=== PATIENT | female | born 1960 | race Caucasian/White ===

== ENCOUNTER → 2023-09-28 10:29 | Outpatient (REF) | payer OTHER, SELFPAY | LOC: RAD 10:29 | PROVIDERS: ATTENDING PHYSICIAN Nurse Practitioner Primary Care; REFERRING PHYSICIAN Specialist | DX: Z85.3 Personal history of malignant neoplasm of breast (principal); R10.30 Lower abdominal pain, unspecified; M16.12 Unilateral primary osteoarthritis, left hip | CPT/HCPCS: 73502; 76830; 76856 ==

== ENCOUNTER 2023-09-30 10:10 | Emergency (ER) | payer OTHER, SELFPAY ==
[2023-09-30 10:30] VITALS: BP 125/92
--- NOTE | 2023-09-30 11:44 | ED.GENMED ---
History of Present Illness
General
Chief Complaint: Abdominal Pain
Source: patient
Exam Limitations: none
Time Seen by Provider: 09/30/23 11:23
Travel History
Have you had any contact with someone who has COVID-19?: No
Do you have any symptoms of coronavirus? Fever > 100 degrees, chills, cough, shortness of breath, sore throat, loss of taste or smell, muscle aches, or headache?: No
History of Present Illness
History of Present Illness:
63-year-old female presents with intermittent moderate to severe cramps in her abdomen over the past week. Occasionally is made worse with eating however sometimes does not. She denies any vomiting. No chest pain or shortness of breath. She has
been moving her bowels. No diarrhea or bloody stool. No other complaints at this time no urinary symptoms. No recent travel or surgery
Past History
Past History
ED Past Medical History: Cancer (Breast cancer), GERD, Other (Back pain, hiatal hernia) and Other (Anemia)
ED Past Surgical History: Other (Wide excision breast, breast augmentation)
Social History
Tobacco: Non-smoker
Alcohol: None
Drug: None
Living: with family
Phy Exam
Physical Exam
Physical Exam:
General: Well-appearing female no acute respiratory distress
HEENT: Normocephalic atraumatic
Heart: Regular rate and rhythm no murmurs
Lungs: Clear to auscultation bilaterally no wheezing
Abdomen soft mildly diffusely tender and slightly tender to the epigastric region. Negative Wharton sign no guarding rebound normal bowel sounds no pulsatile masses no costovertebral angle tender
Extremities: No cyanosis or edema
Course
Orders/Labs/Results
Orders:
Orders
09/30/23 11:39
CT Abd/pelvis W Iv Cont Urgent
Comment:
Reason For Exam: abdominal pain
09/30/23 13:02
Complete Blood Count/With Diff Urgent
Comprehensive Metabolic Panel Urgent
Lactic Acid Q4H
Comment: CANCEL 2nd LACTIC ACID IF 1st LACTIC ACID IS LESS THAN 2
Lipase Urgent
Abnormal Lab Results
09/30/23
13:02
Absolute Neuts (auto) 7.0 H 10^3/uL
(1.4-6.5)
Absolute Monos (auto) 0.7 H 10^3/uL
(0.1-0.6)
Chloride 108 H mmol/L
(98-107)
09/30/23 13:02
09/30/23 13:02
Vital Signs
Initial and Last Documented VS:
Initial Vital Signs
Temp Pulse Resp BP Pulse Ox
99.2 F 83 16 125/92 100
09/30/23 10:30 09/30/23 10:30 09/30/23 10:30 09/30/23 10:30 09/30/23 10:30
Last Documented Vital Signs
Temp Pulse Resp BP Pulse Ox
98.3 F 76 18 142/85 100
09/30/23 14:04 09/30/23 14:04 09/30/23 14:04 09/30/23 14:04 09/30/23 14:04
MDM/Problems Addressed
Differential Diagnosis Includes:
Abdominal pain. Differential could include gastroenteritis versus gastritis versus biliary colic versus diverticulitis
Will check labs including lipase. CT with IV contrast pending
*Critical Care Note
Total Time (30-74mins, 75-104mins- exclusive of procedures): Not Applicable
Update Note
Update Note:
CT shows acute sigmoid diverticulitis without evidence of rupture or abscess. Patient be started on Levaquin and Flagyl advise clear liquids and stable for discharge
ED Attending Note
-
Portions of this chart may have been created with voice recognition software.� Occasional wrong word or��sound alike� substitutions may have occurred due to the inherent limitations of voice recognition software.
Discharge Plan
Departure
Patient Disposition: Home (Routine Discharge)
Date of Disposition: 09/30/23
Time of Disposition: 14:47
Patient with high blood pressure during this ER visit?: No
Discharge Problem:
Diverticulitis
Instructions: Diverticulitis (DC)
Prescriptions:
New
metronidazole 500 mg tablet
500 mg PO TID Qty: 30 0RF
levofloxacin 500 mg tablet
500 mg PO DAILY 10 Days Qty: 10 0RF
Referrals:
Jaydon Raygoza DO [Family Provider] -
Activity Restrictions/Additional Instructions:
Drink plenty clear liquids. Use antibiotics as directed. Return here for increasing pain or fever. Follow-up with your family doctor otherwise
Interventions
Interventions:
*ED COVID-19 Vaccine History Last Done: 09/30/23 10:30
[2023-09-30 12:01] VITALS: BMI 29.4
[2023-09-30 13:11] LABS: % Basophils 0.9 % (0-2); % Eosinophils 2.3 % (0-6); % Immature Granulocytes 0.4 % (0-0.5); % Lymphocytes 25.4 % (20.5-51.1); % Monocytes 6.3 % (1.7-9.3); % Neutrophils 64.7 % (42.2-75.2); Absolute Basophils 0.1 10^3/uL (0-0.2); Absolute Eosinophils 0.3 10^3/uL (0-0.7); Absolute Lymphocytes 2.7 10^3/uL (1.2-3.4); Absolute Monocytes 0.7 10^3/uL (0.1-0.6); Hemoglobin 14.5 g/dL (12.0-16.0); Mean Corp Hgb Conc. 34.5 g/dL (33.0-37.0); Mean Corpuscular Hgb 29.4 pg (27.0-31.0); Mean Platelet Volume 10.3 fL (7.4-10.4); Nucleated Red Blood Cells % 0 %; Platelet Count 280 10^3/uL (130-400); Red Blood Cell Count 4.94 10^6/uL (4.20-5.40); Red Cell Dist. Width 12.9 % (11.5-14.5); White Blood Cell Count 10.8 10^3/uL (4.8-10.8)
[2023-09-30 13:42] LABS: ALT (SGPT) 24 U/L (0-35); AST (SGOT) 28 U/L (14-36); Albumin 4.4 g/dl (3.5-5.0); Alkaline Phosphatase 82 U/L (38-126); Blood Urea Nitrogen 17 mg/dl (7-17); Calcium 9.7 mg/dl (8.4-10.2); Carbon Dioxide 23 mmol/L (22-30); Chloride 108 mmol/L (98-107); Estimated Creatinine Clearance 76 ml/min; Glucose 90 mg/dl (70-99); Lipase 56 U/L (23-300); Potassium 4.2 mmol/L (3.5-5.1); Sodium 137 mmol/L (135-145); Total Bilirubin 1.3 mg/dl (0.2-1.3); Total Protein 7.2 g/dl (6.3-8.2); eGFR > 60.00
[2023-09-30 14:04] VITALS: BP 142/85
== END 2023-09-30 15:25 | disposition home or self-care (01) ==
LOC: EMR 10:10
PROVIDERS: Physician Assistant; EMERGENCY PHYSICIAN Emergency Medicine; FAMILY PHYSICIAN Internal Medicine
DX: K57.32 Diverticulitis of large intestine without perforation or abscess without bleeding (principal)
CPT/HCPCS: 99285; 74177; 80053; 83605; 83690; 85025; Q9967

== ENCOUNTER → 2023-10-06 14:44 | Outpatient (REF) | payer OTHER, SELFPAY | LOC: RAD 14:44 | PROVIDERS: ATTENDING PHYSICIAN Family Medicine | DX: N18.2 Chronic kidney disease, stage 2 (mild) (principal); E87.8 Other disorders of electrolyte and fluid balance, not elsewhere classified | CPT/HCPCS: 76770 ==

== ENCOUNTER → 2023-10-12 08:17 | Outpatient (REF) | payer OTHER, SELFPAY | LOC: RCS 08:17 | PROVIDERS: ATTENDING PHYSICIAN Nurse Practitioner Primary Care; FAMILY PHYSICIAN Internal Medicine | DX: R06.09 Other forms of dyspnea (principal); I34.0 Nonrheumatic mitral (valve) insufficiency; I10 Essential (primary) hypertension | CPT/HCPCS: 93306 ==

== ENCOUNTER 2023-11-12 13:00 | Emergency (ER) | payer OTHER, SELFPAY ==
[2023-11-12 13:05] VITALS: BP 147/79
[2023-11-12 14:19] VITALS: BP 141/72
[2023-11-12 14:37] LABS: % Basophils 0.7 % (0-2); % Eosinophils 2.3 % (0-6); % Immature Granulocytes 0.2 % (0-0.5); % Lymphocytes 44.4 % (20.5-51.1); % Monocytes 5.5 % (1.7-9.3); % Neutrophils 46.9 % (42.2-75.2); Absolute Eosinophils 0.1 10^3/uL (0-0.7); Absolute Lymphocytes 2.7 10^3/uL (1.2-3.4); Absolute Monocytes 0.3 10^3/uL (0.1-0.6); Absolute Neutrophils 2.9 10^3/uL (1.4-6.5); Hematocrit 41.3 % (37.0-47.0); Hemoglobin 13.7 g/dL (12.0-16.0); Mean Corp Hgb Conc. 33.2 g/dL (33.0-37.0); Mean Corpuscular Hgb 29.2 pg (27.0-31.0); Mean Corpuscular Volume 88.1 fL (81.0-99.0); Mean Platelet Volume 11.1 fL (7.4-10.4); Nucleated Red Blood Cells % 0 %; Platelet Count 235 10^3/uL (130-400); Red Blood Cell Count 4.69 10^6/uL (4.20-5.40); Red Cell Dist. Width 12.4 % (11.5-14.5); White Blood Cell Count 6.1 10^3/uL (4.8-10.8)
[2023-11-12 14:45] LABS: Urine Albumin Negative (Neg - Trace); Urine Bilirubin Negative (Negative); Urine Character Clear (Clear); Urine Color Yellow; Urine Glucose Negative (Negative); Urine Ketone 1+ (Negative); Urine Leukocyte Negative (Negative); Urine Nitrite Negative (Negative); Urine Occult Blood Negative (Negative); Urine Urobilinogen Negative (Neg - 1+)
[2023-11-12 14:56] LABS: ALT (SGPT) 19 U/L (0-35); AST (SGOT) 26 U/L (14-36); Albumin 4.5 g/dl (3.5-5.0); Alkaline Phosphatase 56 U/L (38-126); Blood Urea Nitrogen 12 mg/dl (7-17); Calcium 9.7 mg/dl (8.4-10.2); Carbon Dioxide 24 mmol/L (22-30); Chloride 106 mmol/L (98-107); Glucose 87 mg/dl (70-99); Lipase 127 U/L (23-300); Sodium 138 mmol/L (135-145); Total Protein 7.1 g/dl (6.3-8.2); eGFR > 60.00
[2023-11-12 15:17] VITALS: BP 144/73
--- NOTE | 2023-11-12 15:19 | ED.GENMED ---
History of Present Illness
General
Chief Complaint: Abdominal Pain
Source: patient
Exam Limitations: none
Time Seen by Provider: 11/12/23 14:11
Nursing documentation reviewed up to this point in time: agreed with
Travel History
Have you had any contact with someone who has COVID-19?: No
Do you have any symptoms of coronavirus? Fever > 100 degrees, chills, cough, shortness of breath, sore throat, loss of taste or smell, muscle aches, or headache?: No
History of Present Illness
History of Present Illness:
Patient is a 63-year-old female with a history of GERD and hiatal hernia, remote breast cancer in 2005
Presents for continued abdominal discomfort and bloating. Patient says on she came here for abdominal pain was diagnosed with diverticulitis in her sigmoid colon. She was put on Levaquin and Flagyl which she stopped after 4 days because she
was feeling a lot of epigastric pain and thought it inflamed her reflux. She ultimately got put on Protonix 40 mg twice daily and Pepcid 20 mg twice daily. Her family doctor switched her over to Augmentin which she took for 5 days and then had a
brief time of about a week where she did not have any symptoms. At that time she was still eating a pretty bland diet. She says that she made some decisions to add greens into her diet and then was having more discomfort again with a lot of
bloating and crampiness. She has been taking dicyclomine here and there which will help eventually. 5 days ago she started having diarrhea and had diarrhea for about 24 hours. This was after her grandchildren visited and her son ended up telling
her that the grandchildren were also sick with a GI bug. Patient says the diarrhea stopped after 1 day but she is since has had increasing abdominal discomfort. She has seen GI recently who recommended that she have a CT scan which she is
scheduled as an outpatient for 2 weeks from now. Patient says with the symptoms she feels like she cannot wait. She has not had any fever or chills, bloody diarrhea, vomiting, urinary symptoms, chest pain or shortness of breath.
Past History
Past History
ED Past Medical History: Cancer (Breast cancer), GERD, Other (Back pain, hiatal hernia) and Other (Anemia)
ED Past Surgical History: Other (Wide excision breast, breast augmentation)
Social History
Tobacco: Non-smoker
Alcohol: None
Drug: None
Living: with family
Review of Systems
Review of Systems
Allergies reviewed?: Yes
All Other Systems: Not applicable
Phy Exam
Physical Exam
Physical Exam:
GENERAL: Alert , in no apparent distress
HEAD: NCAT
NECK: Supple,full rom, nontender
ENT: o/p clr, mmm.
CARDIAC: Regular rate and rhythm . no edema
LUNGS: Clear breath sounds bilaterally, no acute respiratory distress, no wheezes/rales/rhonchi
ABDOMEN: Soft, without focal tenderness, no r/g, no cvat, no significant distnetion
NEUROLOGICAL: Alert and orientedx 4,
SKIN: Warm and dry, skin intact.
MUSCULOSKELETAL: No edema, well perfused.
PSYCH: Normal and appropriate interaction.
Course
Orders/Labs/Results
Orders:
Orders
11/12/23 14:21
CMP [Comprehensive Metabolic Panel] Urgent
Complete Blood Count/With Diff Urgent
Lipase Urgent
11/12/23 14:39
Urine Culture Reflexed from UA [Urinalysis Reflex To Culture] Urgent
Date Specimen was Collected: 11/12/23
Time Specimen was Collected: 14:31
11/12/23 15:11
CT Abd/Pel (IV only)-DH only Urgent
Comment:
Reason For Exam: continued abd pain, h/o diverticultis
Abnormal Lab Results
11/12/23 11/12/23
14:21 14:39
MPV 11.1 H fL
(7.4-10.4)
Urine Ketones 1+ A
(Negative)
11/12/23 14:21
11/12/23 14:21
Vital Signs
Initial and Last Documented VS:
Initial Vital Signs
Temp Pulse Resp BP Pulse Ox
98.8 F 56 17 147/79 99
11/12/23 13:05 11/12/23 13:05 11/12/23 13:05 11/12/23 13:05 11/12/23 13:05
Last Documented Vital Signs
Temp Pulse Resp BP Pulse Ox
98.8 F 64 18 131/71 99
11/12/23 13:05 11/12/23 17:18 11/12/23 17:18 11/12/23 17:18 11/12/23 17:18
MDM/Problems Addressed
Differential Diagnosis Includes:
diverticultis, gerd, gastritis, hiatal hernia, small intensine bacterial overgrowth
MDM/Problems Addressed:
63 y/o F with ongoing bloating and some discomfort, mostlly epigastric since having abx for her diverticulitis dx 09/30 here
pt seen by GI an amanda scheudle to have endoscopy /colonosocpy but GI wanted her to have ct first to ensure resolution of her inflammnation from divertic
pt ahd some week or two feeling better but the sypmtosm wax and wane and she is tired of feeling like she cannot eat anything buy bland food
she is well apeparing nontoxic
no vomiting or diarrhea
no constipation
no cp, sob
her labs show mild ketones in urine otherwise neg
ct reviewed with patient
some atelectasis in the lung, nonspecifici
inflammmation overall improved in colon
no new divertic
pt would like to try eating more foods than white bread
she acutally doesn't have inc pain with eating
but she gets bloated
perhaps SIBO
pt d/c home
fu gi.
*Critical Care Note
Total Time (30-74mins, 75-104mins- exclusive of procedures): Not Applicable
ED Attending Note
-
Portions of this chart may have been created with voice recognition software.� Occasional wrong word or��sound alike� substitutions may have occurred due to the inherent limitations of voice recognition software.
Discharge Plan
Departure
Patient Disposition: Home (Routine Discharge)
Date of Disposition: 11/12/23
Time of Disposition: 17:16
Patient with high blood pressure during this ER visit?: Yes
Condition: Fair
Covid-19: Not Applicable
Discharge Problem:
Abdominal pain, Abdominal bloating
Instructions: Abdominal Pain
Prescriptions:
No Action
metronidazole 500 mg tablet
500 mg PO TID Qty: 30 0RF
levofloxacin 500 mg tablet
500 mg PO DAILY 10 Days Qty: 10 0RF
Referrals:
Jaydon Raygoza DO [Family Provider] - Follow up in 2-3 days
Activity Restrictions/Additional Instructions:
Your CAT scan showed some incidental findings but it looks overall that your diverticulitis is much better. You can try advancing your diet as tolerated. Consider asking youR GI doctor for whether you may benefit from an antibiotic specific for
small intestinal bacterial overgrowth. You can also try watching how much gluten you eat because this is an inflammatory as well.
Try a fiber supplement.
Drink more fluids.
Continue your GI medications and have your colonoscopy and endoscopy as planned. Return for any black stool, severe sudden worsening of pain, fever or chills, bloody stool, severe diarrhea or any concerns
Interventions
Interventions:
*Risk Screen - Suicide Last Done: 11/12/23 14:18
*General Assessment Last Done: 11/12/23 14:18
*Neglect/Abuse Screening Last Done: 11/12/23 14:18
ED- Fall Risk Assessment Last Done: 11/12/23 14:18
*ED COVID-19 Vaccine History Last Done: 11/12/23 14:18
*Nursing Disposition Last Done: 11/12/23 17:23
ZS-Wniapz-Qybhnpzfbx Assessment Last Done: 11/12/23 14:18
[2023-11-12 17:18] VITALS: BP 131/71
== END 2023-11-12 18:18 | disposition home or self-care (01) ==
LOC: EMR 13:00
PROVIDERS: EMERGENCY PHYSICIAN Emergency Medicine; FAMILY PHYSICIAN Internal Medicine
DX: R10.9 Unspecified abdominal pain (principal); R14.0 Abdominal distension (gaseous); R82.4 Acetonuria; K57.92 Diverticulitis of intestine, part unspecified, without perforation or abscess without bleeding; R03.0 Elevated blood-pressure reading, without diagnosis of hypertension
CPT/HCPCS: 99285; 74177; 80053; 81003; 83690; 85025; Q9967

== ENCOUNTER → 2023-11-27 06:27 | Day surgery (SDC) | payer OTHER, SELFPAY | LOC: GI 06:27 | PROVIDERS: ATTENDING PHYSICIAN Internal Medicine | DX: K57.30 Diverticulosis of large intestine without perforation or abscess without bleeding (principal); R10.13 Epigastric pain; K31.7 Polyp of stomach and duodenum; R11.0 Nausea; D12.5 Benign neoplasm of sigmoid colon; K63.5 Polyp of colon; K29.50 Unspecified chronic gastritis without bleeding | CPT/HCPCS: 45385; 45380; 43239; 88305; 88342 ==

== ENCOUNTER → 2024-04-04 10:07 | Outpatient (REF) | payer OTHER, SELFPAY | LOC: RCS 10:07 | PROVIDERS: ATTENDING PHYSICIAN Internal Medicine Cardiovascular Disease; FAMILY PHYSICIAN Nurse Practitioner Primary Care; REFERRING PHYSICIAN Surgery Plastic and Reconstructive Surgery | DX: R06.02 Shortness of breath (principal); I10 Essential (primary) hypertension; Z01.818 Encounter for other preprocedural examination | CPT/HCPCS: 93017; 93005; 93350 ==

== ENCOUNTER → 2024-04-18 10:31 | Outpatient (REF) | payer OTHER, SELFPAY | LOC: WDC 10:31 | PROVIDERS: ATTENDING PHYSICIAN Obstetrics & Gynecology Gynecology; FAMILY PHYSICIAN Nurse Practitioner Primary Care | DX: Z12.31 Encounter for screening mammogram for malignant neoplasm of breast (principal) | CPT/HCPCS: 77063; 77067 ==

== ENCOUNTER 2024-04-24 06:01 | Day surgery (SDC) | payer OTHER, SELFPAY ==
[2024-04-24] VITALS (13 sets, daily range): BP systolic 112–143; BP diastolic 56–97; BMI 26.5
[2024-04-24] MEDS: NORMOSOL-R/PLASMALYTE-A 1000 IV (06:30)
[2024-04-24] MEDS: TYLENOL 1000 MG PO (06:46)
--- NOTE | 2024-04-24 07:15 | W.SUR.PREOP ---
Pre-Operative Surgical Note
-
I have examined this patient prior to the performance of the scheduled procedure.
The patient's condition is unchanged from the time of the current History and
Physical and the patient is able to undergo the scheduled procedure.
--- NOTE | 2024-04-24 07:43 | W.IMMPOSTOP ---
Surgical Immed Post Op Note
-
Primary Surgeon: RAJENDRA Lima MD
Assisting Surgeon:
Pre-op Diagnosis: capsular contracture, breast implant rupture, history of breast cancer, history of radiation
Post-op Diagnosis: same
Procedure Performed: bilateral capsulectomy, implant replacement, balancing mastopexy
Anesthesia Type: General
Specimen / Cultures: None
Estimated Blood Loss: 30 cc
Complications: none
Operative Findings: as expected
--- NOTE | 2024-04-24 07:43 | OR.RPT ---
Operative Report
Operative Report
date of surgery: 04/24/2024
Surgeon: Wilmar Lima MD
Preoperative diagnosis: History of breast cancer, capsular contracture, implant rupture, history of radiation
Postoperative diagnosis: Same
Procedure:
1. Bilateral total capsulectomy
2. Removal of bilateral ruptured implants
3. Insertion of bilateral silicone gel breast implants, delayed
4. Right balancing mastopexy
Complications: None
EBL: 30 cc
Anesthesia: General
Indication for procedure: Patient is a 63-year-old female with a history of bilateral breast implants. She was diagnosed with a left-sided breast cancer and underwent lumpectomy and radiation. Years later she was left with breast asymmetry and
hard, painful breast implant capsules consistent with capsular contracture, severe. She presented for discussion of bilateral implant removal and replacement with capsulectomy for symptomatic improvement. Given the radiation related fibrosis, the
right breast had grown much larger and more ptotic than the left breast. As such plan was made for right balancing mastopexy as well. Alternatives were discussed at length as were the risks. Risks include recurrent capsular contracture, hematoma,
seroma, malposition, infection and delayed wound healing. She consented accordingly
Procedure in detail:
Patient was identified preoperatively and the surgical site was confirmed to be the bilateral breast. All questions were answered and consents were confirmed. Patient was taken back to the operating room placed supine on table. Anesthesia was
induced and the patient was prepped and draped in usual sterile fashion using ChloraPrep solution. Timeout for patient safety was performed and was confirmed and bilateral SCDs were in place and preoperative antibiotics had been administered.
Procedure began with the injection 1% lidocaine with epinephrine and the proposed markings at the inframammary folds. Attention was first drawn to the left side where the inframammary marking was incised with a 15 blade. Bovie electrocautery was
used to dissect down to the breast implant capsule. Dissection proceeded around the breast implant capsule which was in the prepectoral position. As such the entire breast capsule was removed en bloc along with the contained ruptured breast
implant. The implant was removed from the shell and the capsule was sent as a specimen. Water displacement was used to measure the approximate volume of this implant for replacement. A sizer was placed into the space after ensuring meticulous
hemostasis. Attention was then drawn to the right side where the exact same procedure was performed. An incision was made along the inframammary fold and dissection continued with Bovie electrocautery to perform an en bloc capsulectomy containing
a ruptured implant. After this was removed meticulous hemostasis was ensured and this implant was also measured with water displacement to ensure they were the same size. Based on the size of that was placed it was determined that a 565 hold
high-profile silicone gel implant would be appropriate for symmetry. The right side would require an inverted T mastopexy as well for balancing. Attention was drawn back to the left side where the sizer was removed, 2 rounds of antibiotic
irrigation rinse out the pocket followed by dilute Betadine. Using a no touch technique and a Nesbitt funnel the implant was placed in the left breast. The wound was closed with 2-0 Vicryl's followed by 3-0 and 4-0 Monocryl. Attention was drawn to
the right where the exact same procedure was performed. Meticulous hemostasis was ensured and the wound was irrigated with double antibiotic solution followed by dilute Betadine. Using a no touch technique a silicone gel implant was placed and
the wound was closed with 2-0 Vicryl's. The right sided mastopexy was then drawn out involving excision of skin at the lower pole and inframammary fold. This also included a periareolar skin excision. Patient was sat upright and these were marked
to ensure equal nipple to fold distances. The mastopexy was then performed excising the unnecessary tissue and the wound was closed with a series of Vicryl, 3-0 Monocryl and 4-0 Monocryl sutures. The perfusion was maintained throughout. At the
end the patient achieved adequate symmetry with a nice correction. Patient tolerated well was performed out complication, all counts were correct. She was extubated taken the PACU for further care.
== END 2024-04-24 14:20 | disposition home or self-care (01) ==
LOC: SDS 06:01
PROVIDERS: ATTENDING PHYSICIAN Surgery Plastic and Reconstructive Surgery; FAMILY PHYSICIAN Internal Medicine
DX: T85.49XA Other mechanical complication of breast prosthesis and implant, initial encounter (principal); T85.44XA Capsular contracture of breast implant, initial encounter; Y83.1 Surgical operation with implant of artificial internal device as the cause of abnormal reaction of the patient, or of later complication, without mention of misadventure at the time of the procedure; C50.912 Malignant neoplasm of unspecified site of left female breast; Z85.3 Personal history of malignant neoplasm of breast; Z92.3 Personal history of irradiation
CPT/HCPCS: 19342; 19371; 19380; 19316; 19330; 88304; 88305; C1789

== ENCOUNTER 2024-05-14 11:15 | Outpatient (RCR) | payer OTHER, SELFPAY | END 2024-05-14 23:59 | disposition home or self-care (01) | LOC: RPT 11:15 | PROVIDERS: ATTENDING PHYSICIAN Surgery Plastic and Reconstructive Surgery | DX: I97.2 Postmastectomy lymphedema syndrome (principal); C50.912 Malignant neoplasm of unspecified site of left female breast; Z73.6 Limitation of activities due to disability | CPT/HCPCS: 97140; 97162 ==

== ENCOUNTER → 2024-05-23 09:00 | Outpatient (REF) | payer OTHER, SELFPAY | LOC: WDC 09:00 | PROVIDERS: ATTENDING PHYSICIAN Surgery Plastic and Reconstructive Surgery; FAMILY PHYSICIAN Nurse Practitioner Primary Care | DX: L76.34 Postprocedural seroma of skin and subcutaneous tissue following other procedure (principal); N64.59 Other signs and symptoms in breast | CPT/HCPCS: 76642 ==

== ENCOUNTER 2024-06-19 11:01 | Outpatient (RCR) | payer OTHER, SELFPAY | END 2024-06-19 23:59 | disposition home or self-care (01) | LOC: RPT 11:01 | PROVIDERS: ATTENDING PHYSICIAN Surgery Plastic and Reconstructive Surgery | DX: C50.912 Malignant neoplasm of unspecified site of left female breast (principal); Z73.6 Limitation of activities due to disability | CPT/HCPCS: 97110; 97112; 97140 ==

== ENCOUNTER 2024-07-12 11:31 | Outpatient (RCR) | payer OTHER, SELFPAY | END 2024-07-12 23:59 | disposition home or self-care (01) | LOC: RPT 11:31 | PROVIDERS: ATTENDING PHYSICIAN Surgery Plastic and Reconstructive Surgery | DX: I97.2 Postmastectomy lymphedema syndrome (principal); C50.912 Malignant neoplasm of unspecified site of left female breast; Z73.6 Limitation of activities due to disability; Z98.890 Other specified postprocedural states | CPT/HCPCS: 97110; 97112; 97140 ==

== ENCOUNTER 2024-07-24 11:48 | Outpatient (RCR) | payer OTHER, SELFPAY | END 2024-08-07 10:27 | disposition home or self-care (01) | LOC: RPT 11:48 | PROVIDERS: ATTENDING PHYSICIAN Surgery Plastic and Reconstructive Surgery | DX: I97.2 Postmastectomy lymphedema syndrome (principal); C50.912 Malignant neoplasm of unspecified site of left female breast (principal); Z73.6 Limitation of activities due to disability; Z98.890 Other specified postprocedural states | CPT/HCPCS: 97110; 97140 ==

== ENCOUNTER 2024-10-26 12:10 | Emergency (ER) | payer OTHER, SELFPAY ==
[2024-10-26 12:11] VITALS: BP 133/89
--- NOTE | 2024-10-26 12:35 | EDRN ---
Cristi EDMOND in room w/ pt.
[2024-10-26 12:36] VITALS: BMI 27.0
--- NOTE | 2024-10-26 12:37 | EDRN ---
Pt states she has LLQ abd pain and R lower spasmodic back pain. Pt states she has a history of diverticulitits. Pt feels back and abd pain are related. Pt states she has not been able to eat much due to pain. Pt states symptoms started a week ago
this past Mon.
--- NOTE | 2024-10-26 13:00 | EDRN ---
Cristi EDMOND in room attempting US IV at this time. This RN could not feel or see any veins to attempt and pt has only 1 arm R that can be used.
[2024-10-26 13:10] VITALS: BP 137/85
[2024-10-26 13:15] LABS: % Basophils 0.7 % (0-2); % Eosinophils 2.8 % (0-6); % Immature Granulocytes 0.4 % (0-0.5); % Lymphocytes 27.3 % (20.5-51.1); % Neutrophils 61.8 % (42.2-75.2); Absolute Basophils 0.1 10^3/uL (0-0.2); Absolute Eosinophils 0.2 10^3/uL (0-0.7); Absolute Lymphocytes 1.9 10^3/uL (1.2-3.4); Absolute Monocytes 0.5 10^3/uL (0.1-0.6); Absolute Neutrophils 4.4 10^3/uL (1.4-6.5); Hematocrit 43.5 % (37.0-47.0); Hemoglobin 14.9 g/dL (12.0-16.0); Mean Corp Hgb Conc. 34.3 g/dL (33.0-37.0); Mean Corpuscular Hgb 29.6 pg (27.0-31.0); Mean Corpuscular Volume 86.5 fL (81.0-99.0); Mean Platelet Volume 10.5 fL (7.4-10.4); Nucleated Red Blood Cells % 0 %; Platelet Count 262 10^3/uL (130-400); Red Blood Cell Count 5.03 10^6/uL (4.20-5.40); Red Cell Dist. Width 13.4 % (11.5-14.5); White Blood Cell Count 7.1 10^3/uL (4.8-10.8)
[2024-10-26] MEDS: NSS 1000 IV (13:15)
[2024-10-26 13:40] LABS: ALT (SGPT) 15 U/L (0-35); AST (SGOT) 22 U/L (14-36); Albumin 4.7 g/dl (3.5-5.0); Alkaline Phosphatase 61 U/L (38-126); Blood Urea Nitrogen 11 mg/dl (7-17); Calcium 9.7 mg/dl (8.4-10.2); Carbon Dioxide 22 mmol/L (22-30); Chloride 103 mmol/L (98-107); Estimated Creatinine Clearance 52 ml/min; Glucose 82 mg/dl (70-99); Potassium 4.2 mmol/L (3.5-5.1); Sodium 137 mmol/L (135-145); Total Bilirubin 1.8 mg/dl (0.2-1.3); Total Protein 7.1 g/dl (6.3-8.2); eGFR > 60.00
[2024-10-26 14:00] VITALS: BP 132/78
--- NOTE | 2024-10-26 14:05 | EDRN ---
Cristi Ernst PA in room w/pt at this time.
--- NOTE | 2024-10-26 14:09 | ED.GENMED ---
History of Present Illness
General
Chief Complaint: Abdominal Pain
Time Seen by Provider: 10/26/24 12:20
History of Present Illness
History of Present Illness:
64-year-old female presents the emergency department for evaluation of left lower quadrant abdominal pain for the past 8 to 9 days. She has a past history of diverticulitis and states that it feels similar. She had a leftover prescription for
levofloxacin 750 mg which she has been taking for the past 7 days with no improvement. Reports poor appetite but no vomiting or diarrhea. No chest pain or shortness of breath. Prior history of ovarian cystectomy and bladder mesh surgery
Past History
Past History
ED Past Medical History: Cancer (Breast cancer), GERD, Other (Back pain, hiatal hernia) and Other (Anemia)
ED Past Surgical History: Other (Wide excision breast, breast augmentation)
Social History
Tobacco: Non-smoker
Alcohol: None
Drug: None
Living: with family
Review of Systems
Review of Systems
Allergies reviewed?: Yes
All Other Systems: ROS reviewed and negative except as documented in HPI and ROS
Phy Exam
Physical Exam
Physical Exam:
GEN: Well appearing, NAD, WDWN
HEENT: Oral mucosa moist, no scleral icterus
Cardiac: Regular rate
Lung: No respiratory distress, no tachypnea
Abdomen: Soft, no severe tenderness, minimal left lower quadrant tenderness, no rigidity
MSK: No gross deformity or injuries
Skin: Good color, no pallor or jaundice, no rashes
Neuro: AO x3, moves all extremities freely
Psych: Calm, cooperative
Course
Orders/Labs/Results
Orders:
Orders
10/26/24 13:06
IV Insert/Care/Rem.- Treatment PRN
10/26/24 13:07
Complete Blood Count/With Diff Urgent
Comprehensive Metabolic Panel Urgent
10/26/24 13:15
0.9% Sodium Chloride 500 ml [Nss] 1,000 ml IV BOLUS
10/26/24 14:08
Piperacillin/Tazo 3.375 Gram [Zosyn] 3.375 gram in 50 ml IV NOW
Abnormal Lab Results
10/26/24
13:07
MPV 10.5 H fL
(7.4-10.4)
Total Bilirubin 1.8 H mg/dl
(0.2-1.3)
10/26/24 13:07
10/26/24 13:07
Vital Signs
Initial and Last Documented VS:
Initial Vital Signs
Temp Pulse Resp BP Pulse Ox
97.9 F 80 18 133/89 99
10/26/24 12:11 10/26/24 12:11 10/26/24 12:11 10/26/24 12:11 10/26/24 12:11
Last Documented Vital Signs
Temp Pulse Resp BP Pulse Ox
97.9 F 65 16 132/78 100
10/26/24 12:11 10/26/24 14:00 10/26/24 14:00 10/26/24 14:00 10/26/24 14:00
MDM/Problems Addressed
MDM/Problems Addressed:
Labs are reassuring. Her exam is not concerning for perforation or abscess at this point. A lengthy discussion with the patient, at this time we are in agreement that CT scan is not immediately necessary. Will switch from Levaquin to Augmentin
and prescribe Bentyl for pain relief. Educated on importance of clear liquid and low residue diet
*Critical Care Note
Total Time (30-74mins, 75-104mins- exclusive of procedures): Not Applicable
ED Attending Note
-
Portions of this chart may have been created with voice recognition software.� Occasional wrong word or��sound alike� substitutions may have occurred due to the inherent limitations of voice recognition software.
Discharge Plan
Departure
Patient Disposition: Home (Routine Discharge)
Date of Disposition: 10/26/24
Time of Disposition: 14:09
Patient with high blood pressure during this ER visit?: No
Discharge Problem:
Acute diverticulitis
Instructions: Low-fiber diet
Prescriptions:
New
amoxicillin-pot clavulanate 875-125 mg tablet
1 tab PO BID 10 Days Qty: 19 0RF
dicyclomine 20 mg tablet
20 mg PO TID PRN (Reason: abdominal pain) Qty: 20 0RF
No Action
famotidine 40 mg Tablet
40 mg PO DAILY
esomeprazole magnesium 40 mg Capsule,Delayed Release(Dr/Ec)
40 mg PO PRN PRN (Reason: diverticulitis)
lorazepam 1 mg Tablet
1 mg PO HS
dicyclomine 10 mg Capsule
10 mg PO PRN PRN (Reason: diverticulitis)
levocetirizine [Xyzal] 5 mg Tablet
5 mg PO DAILY PRN (Reason: allergies)
cholecalciferol (vitamin D3) [Vitamin D3] 50 mcg (2,000 unit) Capsule
50 mcg PO DAILY
Cholestrum Powder
1 dose PO DAILY
Probiotic
1 tab PO DAILY
cyanocobalamin (vitamin B-12) [Vitamin B-12] 2,500 mcg Tablet, Sublingual
2,500 mcg sublingual .MONWEDFRI
Lidocaine Patch 5 %
1 topical TID
cefadroxil 500 mg capsule
500 mg PO BID Qty: 28 0RF
tramadol 50 mg tablet
50 mg PO Q6H PRN (Reason: severe pain) Qty: 30 0RF
ondansetron 4 mg tablet,disintegrating
4 mg PO Q6H PRN (Reason: nausea and vomiting) Qty: 20 0RF
Referrals:
Kendra Salinas CRNP [Family Provider] -
Activity Restrictions/Additional Instructions:
Low residue/low fiber diet for 5 days
Interventions
Interventions:
*Risk Screen - Suicide Last Done: 10/26/24 12:37
*General Assessment Last Done: 10/26/24 12:36
*Neglect/Abuse Screening Last Done: 10/26/24 12:36
*ED- Fall Risk Assessment Last Done: 10/26/24 12:36
*ED COVID-19 Vaccine History Last Done: 10/26/24 12:36
*Nursing Disposition Last Done: 10/26/24 14:55
XE-Celxlx-Jdemxdzjux Assessment Last Done: 10/26/24 12:32
Discharge Date and Time
Discharge Date/Time: 10/26/24 14:58
Print Language: YAKUT
[2024-10-26] MEDS: ZOSYN 50 IV (14:21)
== END 2024-10-26 14:58 | disposition home or self-care (01) ==
LOC: EMR 12:10
PROVIDERS: Physician Assistant; EMERGENCY PHYSICIAN Emergency Medicine; FAMILY PHYSICIAN Nurse Practitioner Primary Care
DX: K57.32 Diverticulitis of large intestine without perforation or abscess without bleeding (principal); K21.9 Gastro-esophageal reflux disease without esophagitis; Z85.3 Personal history of malignant neoplasm of breast
CPT/HCPCS: 99283; 96365; 80053; 85025

== ENCOUNTER → 2025-02-20 09:53 | Outpatient (REF) | payer OTHER, SELFPAY | LOC: HWRAD 09:53 | PROVIDERS: ATTENDING PHYSICIAN Nurse Practitioner Primary Care | DX: E04.1 Nontoxic single thyroid nodule (principal) | CPT/HCPCS: 76536 ==

== ENCOUNTER 2025-06-23 10:55 | Emergency (ER) | payer OTHER, SELFPAY ==
[2025-06-23 11:31] VITALS: BP 156/96
--- NOTE | 2025-06-23 13:26 | ED.GENMED ---
History of Present Illness
<Samina Macdonald PA-C - Last Filed: 06/23/25 21:11>
General
Chief Complaint: Abdominal Symptoms
Source: patient
Exam Limitations: none
Time Seen by Provider: 06/23/25 12:35
Nursing documentation reviewed up to this point in time: agreed with
History of Present Illness
History of Present Illness:
Patient is a 65-year-old female with history diverticulitis who presents to the emergency department for evaluation of abdominal discomfort. Patient states she had been experiencing a few weeks of lower abdominal discomfort and nausea prompting a
visit to urgent care last Monday. She was prescribed a course of Augmentin for suspected diverticulitis. Patient states she took the medication for 4 days and noticed improvement in symptoms.
Patient states that she does not react well to Augmentin and thought the medication may be causing some side effects. She stopped the medication on Monday. She initially states symptoms remained improved until yesterday when she felt an increase
in lower abdominal discomfort and bloating. She contacted her primary care who recommended that she seen in the emergency department for further evaluation.
Patient denies any fever or chills. No vomiting. No dysuria or hematuria. No anorexia.
Patient does have a history of diverticulitis.
Past History
<Samina Macdonald PA-C - Last Filed: 06/23/25 21:11>
Past History
ED Past Medical History: Cancer (Breast cancer), GERD, Other (Back pain, hiatal hernia) and Other (Anemia)
ED Past Surgical History: Other (Wide excision breast, breast augmentation)
Social History
Tobacco: Non-smoker
Alcohol: None
Drug: None
Living: with family
Review of Systems
<Samina Macdonald PA-C - Last Filed: 06/23/25 21:11>
Review of Systems
Allergies reviewed?: Yes
All Other Systems: ROS reviewed and negative except as documented in HPI and ROS
Phy Exam
<Samina Macdonald PA-C - Last Filed: 06/23/25 21:11>
Physical Exam
Physical Exam:
Vitals: Hypertensive, otherwise vital signs stable. Afebrile
General: Patient is well appearing, no acute distress
Skin: Warm and dry, no rashes or lesions
Head: Normocephalic, atraumatic
Eyes: Sclera nonicteric.
Throat: Protecting airway
Neck: Normal ROM, no cervical spine tenderness, no meningismus
Cardiac: Regular rate and rhythm, no murmurs.
Pulm: Normal respiratory effort. Lungs clear
.
Abdomen: Abdomen soft. Mild tenderness in suprapubic/left lower quadrant. No rebound or guarding
Extremities: No evidence of cyanosis or edema
Neuro: AAOx3. Grossly intact.
Psychiatric: Normal affect.
Course
<Samina Macdonald PA-C - Last Filed: 06/23/25 21:11>
Orders/Labs/Results
Orders:
Orders
06/23/25 13:08
CT Abd/pelvis W Iv Cont Urgent
Comment: hx diverticulitis
Reason For Exam: LLQ pain
0.9% Sodium Chloride 1000 ml [Nss] 1,000 ml IV BOLUS
Ketorolac [Toradol] 15 mg IV NOW STA
Ondansetron Injectable [Zofran] 4 mg IV NOW STA
06/23/25 13:45
Complete Blood Count/With Diff Urgent
06/23/25 14:19
Comprehensive Metabolic Panel Urgent
Lipase Urgent
06/23/25 15:48
Urinalysis Reflex To Culture Urgent
Date Specimen was Collected: 06/23/25
Time Specimen was Collected: 15:13
Urine Microscopic Reflex Cult Urgent
Abnormal Lab Results
06/23/25 06/23/25 06/23/25
13:45 14:19 15:48
Hct 47.7 H %
(37.0-47.0)
MCHC 32.5 L g/dL
(33.0-37.0)
Carbon Dioxide 21 L mmol/L
(22-30)
Total Bilirubin 1.7 H mg/dl
(0.2-1.3)
Ur Occult Blood Reflex 3+ A
(Negative)
Urine RBC 3-6 A /HPF
(0-2)
Urine Bacteria (Reflex) Few A
(Negative)
Urine Yeast Moderate A
(Negative)
Urine Albumin (Reflex) 1+ A
(Neg - Trace)
06/23/25 13:45
06/23/25 14:19
Vital Signs
Initial and Last Documented VS:
Initial Vital Signs
Temp Pulse Resp BP Pulse Ox
98.5 F 63 18 156/96 98
06/23/25 11:31 06/23/25 11:31 06/23/25 11:31 06/23/25 11:31 06/23/25 11:31
Last Documented Vital Signs
Temp Pulse Resp BP Pulse Ox
98.5 F 65 20 160/96 98
06/23/25 11:31 06/23/25 18:11 06/23/25 18:11 06/23/25 18:11 06/23/25 18:11
<Ronnie Martinez MD - Last Filed: 06/23/25 18:24>
Orders/Labs/Results
Orders:
Orders
06/23/25 13:08
CT Abd/pelvis W Iv Cont Urgent
Comment: hx diverticulitis
Reason For Exam: LLQ pain
0.9% Sodium Chloride 1000 ml [Nss] 1,000 ml IV BOLUS
Ketorolac [Toradol] 15 mg IV NOW STA
Ondansetron Injectable [Zofran] 4 mg IV NOW STA
06/23/25 13:45
Complete Blood Count/With Diff Urgent
06/23/25 14:19
Comprehensive Metabolic Panel Urgent
Lipase Urgent
06/23/25 15:48
Urinalysis Reflex To Culture Urgent
Date Specimen was Collected: 06/23/25
Time Specimen was Collected: 15:13
Urine Microscopic Reflex Cult Urgent
Abnormal Lab Results
06/23/25 06/23/25 06/23/25
13:45 14:19 15:48
Hct 47.7 H %
(37.0-47.0)
MCHC 32.5 L g/dL
(33.0-37.0)
Carbon Dioxide 21 L mmol/L
(22-30)
Total Bilirubin 1.7 H mg/dl
(0.2-1.3)
Ur Occult Blood Reflex 3+ A
(Negative)
Urine RBC 3-6 A /HPF
(0-2)
Urine Bacteria (Reflex) Few A
(Negative)
Urine Yeast Moderate A
(Negative)
Urine Albumin (Reflex) 1+ A
(Neg - Trace)
06/23/25 13:45
06/23/25 14:19
Vital Signs
Initial and Last Documented VS:
Initial Vital Signs
Temp Pulse Resp BP Pulse Ox
98.5 F 63 18 156/96 98
06/23/25 11:31 06/23/25 11:31 06/23/25 11:31 06/23/25 11:31 06/23/25 11:31
Last Documented Vital Signs
Temp Pulse Resp BP Pulse Ox
98.5 F 65 20 160/96 98
06/23/25 11:31 06/23/25 18:11 06/23/25 18:11 06/23/25 18:11 06/23/25 18:11
<Samina Macdonald PA-C - Last Filed: 06/23/25 21:11>
MDM/Problems Addressed
Differential Diagnosis Includes:
Not limited to: Acute diverticulitis, intra-abdominal abscess, cystitis, pyelonephritis, renal colic, constipation, etc.
MDM/Problems Addressed:
65-year-old female presents with persistent lower abdominal discomfort and sensation of bloating. Recently completed 4 days of Augmentin for suspected diverticulitis however stopped prior to end of course as she felt she was experiencing side
effects. No fever, changes in bowel habits, urinary symptoms. No vomiting. Patient is mildly hypertensive on arrival, otherwise stable vital signs. She is afebrile. On exam, she appears well and in no distress. Abdomen is soft with very mild
tenderness across lower abdomen. No rebound or guarding. No rash. Cardio/pulmonary assessment unremarkable.
Given history, concern for possibly incompletely treated diverticulitis. Other differentials as above. Will check labs, urinalysis, and CT scan abdomen/pelvis. Will treat pain and reassess.
Update: Labs reviewed. CBC without any clinically significant abnormalities. No leukocytosis. Chemistry unremarkable other than mild elevation in bilirubin which she has had in the past. Urinalysis appears contaminated. Do not suspect
infection. CT scan without acute findings. No evidence of acute diverticulitis.
Ultimately, workup in ED negative. She appears well and stable. We did have a discussion regarding starting new course of antibiotics to cover possible underlying diverticulitis that was not completely treated versus close monitoring of symptoms.
Given patient is afebrile with no leukocytosis and relatively benign exam, decision was made to hold further antibiotics at this time as she has many adverse effects and follow-up closely with primary care. Very strict return precautions discussed.
Patient comfortable with plan.
Chronic conditions affecting care:
History of diverticulitis
Acute Exacerbation and/or Progression of Chronic Illness:
N/A
<Samina Macdonald PA-C - Last Filed: 06/23/25 21:11>
*Radiology
Radiology exam reviewed: radiology read reviewed
*Pulse Oximetry
SaO2: 98
Oxygen Mode of Delivery: Room air
Patient hypoxic: no
*EKG
Interpreted by ED Provider?: NA
*Painter And Decorator Apprentice Interpretation
Rate: Painter And Decorator Apprentice- N/A
*Critical Care Note
Total Time (30-74mins, 75-104mins- exclusive of procedures): Not Applicable
ED Attending Note
<Samina Macdonald PA-C - Last Filed: 06/23/25 21:11>
-
Portions of this chart may have been created with voice recognition software.� Occasional wrong word or��sound alike� substitutions may have occurred due to the inherent limitations of voice recognition software.
<Ronnie Martinez MD - Last Filed: 06/23/25 18:24>
ED Attending Note
Patient seen and examined by attending physician: Yes
I performed the substantive portion of visit, reviewed & personally made and approve the management plan that is documented in note by myself or AUDI.: Yes
ED Attending Note:
65-year-old female complaining of vague abdominal bloating. Seen about a week ago and diagnosed with presumptive diverticulitis at urgent care. Started on Augmentin. She does not tolerate antibiotics well and started feeling somewhat worse on the
Augmentin although after stopping it after 4 days she felt well for 1 day. Now complaining of ongoing bloating. No real pain no fever no vomiting no other complaints
On exam patient is nontoxic in no distress. Warm and dry. Perfusing well. Regular rate and rhythm no murmur. No respiratory distress. Abdomen is soft and nontender. No rebound or guarding no mass or hernia.
Labs are stable. CT is unremarkable. Diverticulosis.
No indication for admission or surgery. Discussed antibiotics. Decision point is whether she was partially treated with the Augmentin and requires further antibiotics or hold on antibiotics given her take antibiotics. This was a joint decision
with the patient. Given the lack of white count lack of fever lack of findings on CT benign exam we will hold on antibiotics and follow-up
Discharge Plan
Departure
Patient Disposition: Home (Routine Discharge)
Date of Disposition: 06/23/25
Time of Disposition: 18:26
Patient with high blood pressure during this ER visit?: Yes
Condition: Good
Discharge Problem:
Abdominal pain
Instructions: Abdominal Pain, BLOOD PRESSURE
Prescriptions:
No Action
famotidine 40 mg Tablet
40 mg PO DAILY
esomeprazole magnesium 40 mg Capsule,Delayed Release(Dr/Ec)
40 mg PO PRN PRN (Reason: diverticulitis)
lorazepam 1 mg Tablet
1 mg PO HS
dicyclomine 10 mg Capsule
10 mg PO PRN PRN (Reason: diverticulitis)
levocetirizine [Xyzal] 5 mg Tablet
5 mg PO DAILY PRN (Reason: allergies)
cholecalciferol (vitamin D3) [Vitamin D3] 50 mcg (2,000 unit) Capsule
50 mcg PO DAILY
Cholestrum Powder
1 dose PO DAILY
Probiotic
1 tab PO DAILY
cyanocobalamin (vitamin B-12) [Vitamin B-12] 2,500 mcg Tablet, Sublingual
2,500 mcg sublingual .MONWEDFRI
Lidocaine Patch 5 %
1 topical TID
cefadroxil 500 mg capsule
500 mg PO BID Qty: 28 0RF
tramadol 50 mg tablet
50 mg PO Q6H PRN (Reason: severe pain) Qty: 30 0RF
ondansetron 4 mg tablet,disintegrating
4 mg PO Q6H PRN (Reason: nausea and vomiting) Qty: 20 0RF
amoxicillin-pot clavulanate 875-125 mg tablet
1 tab PO BID 10 Days Qty: 19 0RF
dicyclomine 20 mg tablet
20 mg PO TID PRN (Reason: abdominal pain) Qty: 20 0RF
Referrals:
Kendra Salinas CRNP [Family Provider, Internal Medicine] - Follow up in 5-7 days
Stand Alone Forms: Return to Work
Activity Restrictions/Additional Instructions:
RETURN TO THE EMERGENCY DEPARTMENT WITH ANY FEVER, CHILLS, PERSISTENT/WORSENING ABDOMINAL PAIN, INTRACTABLE NAUSEA/VOMITING, WORSENING IN CURRENT SYMPTOMS, OR ANY OTHER CONCERNS
As discussed�your CT scan and lab work showed no acute findings today in the emergency department.
Please stay well-hydrated. Take Tylenol and/or Motrin as needed for pain.
Follow-up with primary care for further evaluation/management to ensure that your symptoms are improving
Monitor your symptoms closely and return to the emergency department with any acute worsening/new symptoms or any signs of worsening infection
Interventions
Interventions:
*Risk Screen - Suicide Last Done: 06/23/25 15:15
*General Assessment Last Done: 06/23/25 18:42
*Neglect/Abuse Screening Last Done: 06/23/25 15:15
*ED- Fall Risk Assessment Last Done: 06/23/25 18:43
*ED COVID-19 Vaccine History Last Done: 06/23/25 18:40
*ED Influenza Vaccine History Last Done: 06/23/25 18:40
*Nursing Disposition Last Done: 06/23/25 18:43
JM-Qanhjz-Klatwlebmu Assessment Last Done: 06/23/25 15:15
Discharge Date and Time
Discharge Date/Time: 06/23/25 18:43
Print Language: SALVADOREAN
[2025-06-23] MEDS: NSS 1000 IV (13:46)
[2025-06-23] MEDS: TORADOL 15 MG IV (13:46)
[2025-06-23] MEDS: ZOFRAN 4 MG IV (13:46)
[2025-06-23 13:53] LABS: Hematocrit 47.7 % (37.0-47.0); Hemoglobin 15.5 g/dL (12.0-16.0); Mean Corp Hgb Conc. 32.5 g/dL (33.0-37.0); Mean Corpuscular Volume 91.4 fL (81.0-99.0); Nucleated Red Blood Cells % 0 %; Platelet Count 237 10^3/uL (130-400); Red Cell Dist. Width 12.4 % (11.5-14.5)
[2025-06-23 14:56] LABS: ALT (SGPT) 16 U/L (0-35); AST (SGOT) 23 U/L (14-36); Albumin 4.8 g/dl (3.5-5.0); Alkaline Phosphatase 62 U/L (38-126); Blood Urea Nitrogen 11 mg/dl (7-17); Calcium 9.5 mg/dl (8.4-10.2); Carbon Dioxide 21 mmol/L (22-30); Chloride 105 mmol/L (98-107); Glucose 80 mg/dl (70-99); Lipase 77 U/L (23-300); Potassium 3.9 mmol/L (3.5-5.1); Sodium 136 mmol/L (135-145); Total Protein 7.9 g/dl (6.3-8.2); eGFR > 60.00
[2025-06-23 16:05] LABS: Urine Character Clear (Clear); Urine Squamous Cell >30 /LPF (Few)
[2025-06-23 18:11] VITALS: BP 160/96
== END 2025-06-23 18:43 | disposition home or self-care (01) ==
LOC: EMR 10:55
PROVIDERS: Physician Assistant; EMERGENCY PHYSICIAN Emergency Medicine; FAMILY PHYSICIAN Nurse Practitioner Primary Care
DX: R10.9 Unspecified abdominal pain (principal); K21.9 Gastro-esophageal reflux disease without esophagitis; D64.9 Anemia, unspecified; I10 Essential (primary) hypertension; Z85.3 Personal history of malignant neoplasm of breast
CPT/HCPCS: 99284; 96374; 96375; 96361; 74177; 80053; 81003; 81015; 83690; 85025; Q9967

== ENCOUNTER → 2025-07-14 11:43 | Outpatient (REF) | payer OTHER, SELFPAY | LOC: WDC 11:43 | PROVIDERS: ATTENDING PHYSICIAN Obstetrics & Gynecology Gynecology; FAMILY PHYSICIAN Nurse Practitioner Primary Care | DX: Z12.31 Encounter for screening mammogram for malignant neoplasm of breast (principal) | CPT/HCPCS: 77063; 77067 ==

== ENCOUNTER → 2025-08-09 12:44 | Outpatient (REF) | payer OTHER, SELFPAY | LOC: MRI 3T 12:44 | PROVIDERS: ATTENDING PHYSICIAN Psychiatry & Neurology Neurology; FAMILY PHYSICIAN Nurse Practitioner Primary Care | DX: M54.16 Radiculopathy, lumbar region (principal) | CPT/HCPCS: 72158; A9575 ==